=== PATIENT | female | born 1980 | race Caucasian/White ===

== ENCOUNTER 2018-01-25 17:51 | Inpatient (IN) | payer MEDICAID ==
[2018-01-25] MEDS: FAMOTIDINE 20 MG INJ IV (20:08)
[2018-01-25] MEDS: KETOROLAC 15 MG INJ IV (20:08)
[2018-01-25] MEDS: ONDANSETRON 4 MG INJ IV (20:08)
[2018-01-25] MEDS: morphine 2 MG INJ IV (20:08)
[2018-01-25] MEDS: SOD CHLORIDE 0.9% 1,000 ML IV ×2 (20:09→23:54)
[2018-01-25 20:23] LABS: ADD MAN DIFF? NO
[2018-01-25 20:24] LABS: WHITE BLOOD COUNT 14.4 10^3/ul (4.8-10.8)
[2018-01-25 20:24] LABS: ABNORMAL IP MESSAGE 1; BASOPHILS % 0.1 % (0.0-2.0); HEMOGLOBIN 12.1 g/dl (12.0-16.0); LYMPHOCYTES # 0.6 10^3/ul (0.8-2.9); LYMPHOCYTES % 4.1 % (15.0-51.0); MEAN CORPUSCULAR HEMOGLOBIN 32.7 pg (29.0-33.0); MEAN CORPUSCULAR HGB CONC 35.6 g/dl (32.0-37.0); MEAN CORPUSCULAR VOLUME 91.9 fl (82.0-101.0); MEAN PLATELET VOLUME 10.1 fl (7.4-10.4); MONOCYTE # 0.7 10^3/ul (0.3-0.9); MONOCYTES % 5.1 % (0.0-11.0); NEUTROPHILS % 90.1 % (39.0-77.0); PLATELET COUNT 183 10^3/UL (140-415); RED CELL DISTRIBUTION WIDTH 11.8 % (11.5-14.5)
[2018-01-25] MEDS: PIPER-TAZO 3.375 GM IV (PMX) 100 ML IVPB ×2 (20:24→23:53)
[2018-01-25 20:26] LABS: POSITIVE DIFF @See below
[2018-01-25 20:38] LABS: ADD UMIC YES; UR AMORPHOUS CRYSTAL FEW /HPF (NONE SEEN); UR ASCORBIC ACID NEGATIVE (NEGATIVE); UR BACTERIA MANY /HPF (NONE SEEN); UR BILIRUBIN (Dip) NEGATIVE (NEGATIVE); UR BLOOD (Dip) 2+ mg/dL (NEGATIVE); UR CLARITY CLOUDY (CLEAR); UR COLOR YELLOW (YELLOW); UR GLUCOSE (Dip) NEGATIVE (NEGATIVE); UR KETONES (Dip) NEGATIVE (NEGATIVE); UR LEUKOCYTE ESTERASE (Dip) 3+ Leu/ul (NEGATIVE); UR NITRITE (Dip) POSITIVE (NEGATIVE); UR RBC 12 /HPF (0-5); UR SPECIFIC GRAVITY (Dip) 1.008 (1.003-1.030); UR SQUAMOUS EPITHELIAL CELL FEW /HPF (FEW); UR TOTAL PROTEIN (Dip) 1+ mg/dl (NEGATIVE); UR TRANSITIONAL EPI CELL FEW /HPF (NONE SEEN); UR UROBILINOGEN (Dip) NEGATIVE (NEGATIVE); UR WBC > 182 /HPF (0-5)
[2018-01-25 20:42] LABS: ALANINE AMINOTRANSFERASE 19 IU/L (13-69); ALBUMIN 4.5 g/dl (3.3-4.9); ALBUMIN/GLOBULIN RATIO 1.32; ALKALINE PHOSPHATASE 66 IU/L (42-121); ANION GAP 19 (8-16); ASPARTATE AMINO TRANSFERASE 21 IU/L (15-46); BILIRUBIN,INDIRECT 0.9 mg/dl (0-1.1); BILIRUBIN,TOTAL 0.9 mg/dl (0.2-1.3); BLOOD UREA NITROGEN 9 mg/dl (7-20); CALCIUM 8.8 mg/dl (8.4-10.2); CARBON DIOXIDE 24 mmol/L (21-31); CHLORIDE 102 mmol/L (97-110); CREATININE 0.76 mg/dl (0.44-1.00); GLUCOSE 128 mg/dl (70-220); LIPASE 48 U/L (23-300); POTASSIUM 3.5 mmol/L (3.5-5.1); SODIUM 141 mmol/L (135-144); TOTAL PROTEIN 7.9 g/dl (6.1-8.1)
[2018-01-25] MEDS: IOHEXOL 300MG/ML 150 ML BTL (21:21)
[2018-01-25] MEDS: SOD CHLORIDE 0.9% 100 ML (21:21)
[2018-01-25] MEDS ORDERED: NACL 0.9% 3 ML SYG IV (23:30)
[2018-01-25] MEDS ORDERED: morphine 2 MG INJ IV (23:30)
[2018-01-25] MEDS ORDERED: ONDANSETRON 4 MG INJ IV (23:30)
[2018-01-25] MEDS ORDERED: VANCOMYCIN IV PER PHARMACY XX (23:30)
[2018-01-25] MEDS ORDERED: ALBUTEROL/IPRATROPIUM (NEB) 3 ML AMP HHN (23:30)
[2018-01-25] MEDS: ACETAMINOPHEN 325 MG TAB PO (23:54)
[2018-01-26] MEDS: HYDROmorphONE 0.5 MG/0.5 ML SYG IV (00:34)
[2018-01-26] MEDS: VANCOMYCIN 1 GM in 250 ML IVPB (01:47)
[2018-01-26] MEDS: SOD CHLORIDE 0.9% 1,000 ML IV ×3 (04:33→16:43)
[2018-01-26 05:13] LABS: WHITE BLOOD COUNT 11.8 10^3/ul (4.8-10.8)
[2018-01-26 05:13] LABS: HEMATOCRIT 27.6 % (37.0-47.0); HEMOGLOBIN 9.6 g/dl (12.0-16.0); MEAN CORPUSCULAR HEMOGLOBIN 32.3 pg (29.0-33.0); MEAN CORPUSCULAR HGB CONC 34.8 g/dl (32.0-37.0); MEAN CORPUSCULAR VOLUME 92.9 fl (82.0-101.0); MEAN PLATELET VOLUME 10.1 fl (7.4-10.4); PLATELET COUNT 137 10^3/UL (140-415); RED BLOOD COUNT 2.97 10^6/ul (4.20-5.40)
[2018-01-26 05:35] LABS: POSITIVE DIFF @See below
[2018-01-26 05:36] LABS: ADD MAN DIFF? YES
[2018-01-26 05:41] LABS: ALANINE AMINOTRANSFERASE 22 IU/L (13-69); ALBUMIN 3.2 g/dl (3.3-4.9); ALBUMIN/GLOBULIN RATIO 1.14; ALKALINE PHOSPHATASE 44 IU/L (42-121); ANION GAP 12 (8-16); ASPARTATE AMINO TRANSFERASE 13 IU/L (15-46); BILIRUBIN,INDIRECT 0.5 mg/dl (0-1.1); BILIRUBIN,TOTAL 0.5 mg/dl (0.2-1.3); BLOOD UREA NITROGEN 7 mg/dl (7-20); CARBON DIOXIDE 23 mmol/L (21-31); CHLORIDE 108 mmol/L (97-110); CREATININE 0.63 mg/dl (0.44-1.00); GLUCOSE 113 mg/dl (70-220); MAGNESIUM 1.8 mg/dl (1.7-2.5); PHOSPHORUS 3.1 mg/dl (2.5-4.9); POTASSIUM 3.2 mmol/L (3.5-5.1); SODIUM 140 mmol/L (135-144)
[2018-01-26] MEDS: PIPER-TAZO 3.375 GM IV (PMX) 100 ML IVPB ×4 (06:10→23:24)
[2018-01-26] MEDS: ACETAMINOPHEN 325 MG TAB PO ×3 (06:15→19:57)
[2018-01-26 07:15] LABS: BAND NEUTROPHILS #M 2.5 10^3/ul (0.0-0.6); BAND NEUTROPHILS % (M) 22 % (0-4); LYMPHOCYTES #M 0.5 10^3/ul (0.8-2.9); LYMPHOCYTES % (M) 5 % (15-51); MONOCYTE #M 0.1 10^3/ul (0.3-0.9); MONOCYTES % (M) 1 % (0-11); PLATELET ESTIMATE NORMAL; SEG NEUT #M 8.8 10^3/ul (1.6-7.5); SEGMENTED NEUTROPHILS (M) % 72 % (39-77); SMUDGE%M 1 % (0-0)
[2018-01-26] MEDS: HEPARIN 5,000 UNIT/0.5 ML VIAL SC (08:53)
[2018-01-26] MEDS: VANCOMYCIN 750 MG in DEXTROSE 5% 150 ML IVPB (08:54)
[2018-01-26] MEDS ORDERED: VANCOMYCIN 750 MG in DEXTROSE 5% 150 ML IVPB ×2 (10:00→17:00)
[2018-01-26] MEDS: POTASSIUM CHLORIDE 100 ML IVPB (17:41)
[2018-01-26] MEDS: SOD CHLORIDE 0.9% 500 ML IV (17:41)
[2018-01-27] MEDS: SOD CHLORIDE 0.9% 1,000 ML IV ×3 (02:13→23:28)
[2018-01-27] MEDS: PIPER-TAZO 3.375 GM IV (PMX) 100 ML IVPB ×4 (05:23→23:54)
[2018-01-27 05:48] LABS: HEMATOCRIT 25.1 % (37.0-47.0); HEMOGLOBIN 8.9 g/dl (12.0-16.0); MEAN CORPUSCULAR HEMOGLOBIN 32.7 pg (29.0-33.0); MEAN CORPUSCULAR HGB CONC 35.5 g/dl (32.0-37.0); MEAN CORPUSCULAR VOLUME 92.3 fl (82.0-101.0); MEAN PLATELET VOLUME 10.8 fl (7.4-10.4); PLATELET COUNT 125 10^3/UL (140-415); RED BLOOD COUNT 2.72 10^6/ul (4.20-5.40); RED CELL DISTRIBUTION WIDTH 12.1 % (11.5-14.5)
[2018-01-27 06:01] LABS: HEMOGLOBIN A1C 5.1 % (0-5.9)
[2018-01-27 06:07] LABS: POSITIVE DIFF @See below
[2018-01-27 06:08] LABS: ADD MAN DIFF? YES
[2018-01-27 06:11] LABS: ALANINE AMINOTRANSFERASE 23 IU/L (13-69); ALBUMIN/GLOBULIN RATIO 1.11; ALKALINE PHOSPHATASE 52 IU/L (42-121); ANION GAP 11 (8-16); ASPARTATE AMINO TRANSFERASE 18 IU/L (15-46); BILIRUBIN,INDIRECT 0.2 mg/dl (0-1.1); BILIRUBIN,TOTAL 0.2 mg/dl (0.2-1.3); BLOOD UREA NITROGEN 3 mg/dl (7-20); CALCIUM 7.3 mg/dl (8.4-10.2); CARBON DIOXIDE 21 mmol/L (21-31); CHLORIDE 111 mmol/L (97-110); GLUCOSE 147 mg/dl (70-220); POTASSIUM 3.2 mmol/L (3.5-5.1); SODIUM 140 mmol/L (135-144); TOTAL PROTEIN 5.7 g/dl (6.1-8.1)
[2018-01-27 06:13] LABS: INR 1.34; PROTIME 16.8 Sec (11.9-14.9); PT RATIO 1.3
[2018-01-27 06:52] LABS: HIV 1&2 ANTIBODY NEGATIVE (NEGATIVE)
[2018-01-27 07:24] LABS: ANISOCYTOSIS 2+ (0-0); BAND NEUTROPHILS #M 2.6 10^3/ul (0.0-0.6); BAND NEUTROPHILS % (M) 26 % (0-4); BURR CELLS 1+ (0-0); EOSINOPHILS % (M) 1 % (0-7); LYMPHOCYTES % (M) 10 % (15-51); MICROCYTOSIS 2+ (0-0); PLATELET ESTIMATE DECREASED; POLYCHROMASIA 1+ (0-0); SEG NEUT #M 6.6 10^3/ul (1.6-7.5); SEGMENTED NEUTROPHILS (M) % 63 % (39-77); SMUDGE%M 1 % (0-0)
[2018-01-27] MEDS: ACETAMINOPHEN 325 MG TAB PO (08:21)
[2018-01-27 21:28] LABS: RAPID PLASMA REAGIN NONREACTIVE (NR)
[2018-01-28] MEDS: PIPER-TAZO 3.375 GM IV (PMX) 100 ML IVPB (05:41)
[2018-01-28 05:51] LABS: ADD MAN DIFF? NO
[2018-01-28 05:53] LABS: WHITE BLOOD COUNT 6.9 10^3/ul (4.8-10.8)
[2018-01-28 05:53] LABS: BASOPHILS % 0.1 % (0.0-2.0); EOSINOPHILS # 0.1 10^3/ul (0.0-0.5); EOSINOPHILS % 0.7 % (0.0-7.0); HEMATOCRIT 24.4 % (37.0-47.0); HEMOGLOBIN 8.7 g/dl (12.0-16.0); MEAN CORPUSCULAR HEMOGLOBIN 32.5 pg (29.0-33.0); MEAN CORPUSCULAR HGB CONC 35.7 g/dl (32.0-37.0); MEAN PLATELET VOLUME 10.6 fl (7.4-10.4); MONOCYTE # 0.4 10^3/ul (0.3-0.9); MONOCYTES % 6.3 % (0.0-11.0); NEUTROPHIL # 5.4 10^3/ul (1.6-7.5); NEUTROPHILS % 78.6 % (39.0-77.0); PLATELET COUNT 152 10^3/UL (140-415); RED BLOOD COUNT 2.68 10^6/ul (4.20-5.40); RED CELL DISTRIBUTION WIDTH 12.1 % (11.5-14.5)
[2018-01-28 06:25] LABS: ALANINE AMINOTRANSFERASE 21 IU/L (13-69); ALBUMIN/GLOBULIN RATIO 1.03; ALKALINE PHOSPHATASE 64 IU/L (42-121); ANION GAP 12 (8-16); ASPARTATE AMINO TRANSFERASE 19 IU/L (15-46); BILIRUBIN,INDIRECT 0.3 mg/dl (0-1.1); BILIRUBIN,TOTAL 0.3 mg/dl (0.2-1.3); BLOOD UREA NITROGEN 2 mg/dl (7-20); CALCIUM 7.8 mg/dl (8.4-10.2); CARBON DIOXIDE 23 mmol/L (21-31); CHLORIDE 111 mmol/L (97-110); CREATININE 0.57 mg/dl (0.44-1.00); GLUCOSE 102 mg/dl (70-220); POTASSIUM 3.1 mmol/L (3.5-5.1); SODIUM 143 mmol/L (135-144); TOTAL PROTEIN 5.9 g/dl (6.1-8.1)
[2018-01-28] MEDS: CIPROFLOXACIN 500 MG TAB PO ×2 (08:53→17:46)
[2018-01-28] MEDS: ENOXAPARIN 40 MG/0.4 ML SYG SC (08:56)
[2018-01-28] MEDS: SOD CHLORIDE 0.9% 1,000 ML IV (13:16)
[2018-01-28] MEDS: ACETAMINOPHEN 325 MG TAB PO (13:21)
== END 2018-01-28 18:30 | disposition home or self-care (01) | DRG 871 ==
LOC: MS1 01-27 04:14 → FTE 17:51 → MS1 22:52
DX: A41.9 Sepsis, unspecified organism (principal); N15.1 Renal and perinephric abscess; N12 Tubulo-interstitial nephritis, not specified as acute or chronic; R65.20 Severe sepsis without septic shock
CPT/HCPCS: 36415; 74177; 76775; 80053; 81001; 83036; 83690; 83735; 84100; 84443; 84703; 85025; 85610; 86592; 86703; 87086; 87591; 96374; 96375; 99285-25

== ENCOUNTER 2019-02-14 18:37 | Emergency (ER) | payer MEDICAID | END 2019-02-14 20:12 | disposition home or self-care (01) | LOC: E/R 18:37 | DX: J02.9 Acute pharyngitis, unspecified (principal) | CPT/HCPCS: 99283; Z7502 ==

== ENCOUNTER 2019-03-26 20:53 | Inpatient (IN) | payer MEDICAID ==
[2019-03-26] MEDS: SODIUM CHLORIDE 0.9% 1L BAG IV* (21:15)
[2019-03-26 21:19] LABS: ADD MAN DIFF? NO
[2019-03-26] MEDS: ONDANSETRON 4 MG INJ IV (21:20)
[2019-03-26] MEDS: LEVOFLOXACIN 750MG/D5W (PMX) 150 ML IVPB (21:20)
[2019-03-26] MEDS: morphine 4 MG/ML VIAL IV (21:20)
[2019-03-26 21:24] LABS: BASOPHILS % 0.1 % (0.0-2.0); EOSINOPHILS % 0.3 % (0.0-7.0); HEMATOCRIT 35.8 % (37.0-47.0); HEMOGLOBIN 12.1 g/dl (12.0-16.0); LYMPHOCYTES # 0.6 10^3/ul (0.8-2.9); LYMPHOCYTES % 8.7 % (15.0-51.0); MEAN CORPUSCULAR HEMOGLOBIN 32.4 pg (29.0-33.0); MEAN CORPUSCULAR HGB CONC 33.8 g/dl (32.0-37.0); MEAN PLATELET VOLUME 9.8 fl (7.4-10.4); MONOCYTE # 0.3 10^3/ul (0.3-0.9); MONOCYTES % 4.3 % (0.0-11.0); NEUTROPHIL # 6.3 10^3/ul (1.6-7.5); NEUTROPHILS % 86.5 % (39.0-77.0); PLATELET COUNT 236 10^3/UL (140-415); RED BLOOD COUNT 3.73 10^6/ul (4.20-5.40); RED CELL DISTRIBUTION WIDTH 12.5 % (11.5-14.5)
[2019-03-26 21:24] LABS: WHITE BLOOD COUNT 7.2 10^3/ul (4.8-10.8)
[2019-03-26 21:46] LABS: INR 0.91; PARTIAL THROMBOPLASTIN TIME 30.4 Sec (23.0-35.0); PROTIME 12.4 Sec (11.9-14.9)
[2019-03-26 21:48] LABS: ALANINE AMINOTRANSFERASE 29 IU/L (13-69); ALBUMIN 4.5 g/dl (3.3-4.9); ALKALINE PHOSPHATASE 60 IU/L (42-121); ANION GAP 9 (5-13); ASPARTATE AMINO TRANSFERASE 23 IU/L (15-46); BILIRUBIN,INDIRECT 0.7 mg/dl (0-1.1); BILIRUBIN,TOTAL 0.7 mg/dl (0.2-1.3); BLOOD UREA NITROGEN 10 mg/dl (7-20); CALCIUM 8.9 mg/dl (8.4-10.2); CARBON DIOXIDE 27 mmol/L (21-31); CHLORIDE 102 mmol/L (97-110); CREATININE 0.71 mg/dl (0.44-1.00); Estimated GFR > 60 mL/min (>60); GLUCOSE 112 mg/dl (70-220); POTASSIUM 3.7 mmol/L (3.5-5.1); SODIUM 138 mmol/L (135-144); TOTAL PROTEIN 7.7 g/dl (6.1-8.1)
[2019-03-26 21:52] LABS: ADD UMIC YES; UR ASCORBIC ACID NEGATIVE (NEGATIVE); UR BACTERIA FEW /HPF (NONE SEEN); UR BILIRUBIN (Dip) NEGATIVE (NEGATIVE); UR BLOOD (Dip) NEGATIVE (NEGATIVE); UR CLARITY SLIGHTLY CLOUDY (CLEAR); UR COLOR YELLOW (YELLOW); UR GLUCOSE (Dip) NEGATIVE (NEGATIVE); UR KETONES (Dip) NEGATIVE (NEGATIVE); UR LEUKOCYTE ESTERASE (Dip) 2+ Leu/ul (NEGATIVE); UR NITRITE (Dip) POSITIVE (NEGATIVE); UR RBC 5 /HPF (0-5); UR SPECIFIC GRAVITY (Dip) 1.021 (1.003-1.030); UR SQUAMOUS EPITHELIAL CELL MODERATE /HPF (FEW); UR TOTAL PROTEIN (Dip) 1+ mg/dl (NEGATIVE); UR UROBILINOGEN (Dip) 1+ mg/dL (NEGATIVE); UR WBC 73 /HPF (0-5)
[2019-03-26 22:00] LABS: TROPONIN-I < 0.012 ng/ml (0.000-0.120)
[2019-03-26] MEDS: VANCOMYCIN 1 GM (PMX) 250 ML IVPB (23:08)
[2019-03-26] MEDS: ACETAMINOPHEN 500 MG TAB PO (23:08)
[2019-03-26] MEDS ORDERED: ACETAMINOPHEN 325 MG TAB PO (23:30)
[2019-03-26] MEDS ORDERED: ONDANSETRON 4 MG INJ IV (23:30)
[2019-03-27] MEDS ORDERED: NACL 0.9% 3 ML SYG IV
[2019-03-27] MEDS ORDERED: ALBUTEROL/IPRATROPIUM (NEB) 3 ML AMP HHN
[2019-03-27] MEDS ORDERED: morphine 2 MG INJ IV
[2019-03-27] MEDS ORDERED: MAGNESIUM HYDROXIDE 30ML CUP PO
[2019-03-27] MEDS ORDERED: LORAZEPAM 2 MG INJ IV
[2019-03-27] MEDS ORDERED: HYDROCODONE/APAP (5/325) TAB PO
[2019-03-27] MEDS ORDERED: hydrALAzine 20 MG INJ IV
[2019-03-27] MEDS ORDERED: NITROGLYCERIN (SL) 0.4 MG TAB SL
[2019-03-27 00:06] LABS: FREE T4 (FREE THYROXINE) 0.81 ng/dl (0.79-2.35)
[2019-03-27] MEDS ORDERED: DIPHENHYDRAMINE 50 MG INJ IV (00:30)
[2019-03-27] MEDS: MEROPENEM 1 GM/50ML(PMX) 50 ML IVPB ×4 (01:20→21:08)
[2019-03-27] MEDS: SOD CHLORIDE 0.9% 1,000 ML IV ×3 (01:21→12:07)
[2019-03-27 03:56] LABS: ADD MAN DIFF? NO
[2019-03-27 04:07] LABS: WHITE BLOOD COUNT 7.2 10^3/ul (4.8-10.8)
[2019-03-27 04:07] LABS: ABNORMAL IP MESSAGE 1; BASOPHILS % 0.3 % (0.0-2.0); HEMATOCRIT 30.5 % (37.0-47.0); HEMOGLOBIN 10.4 g/dl (12.0-16.0); LYMPHOCYTES # 0.5 10^3/ul (0.8-2.9); LYMPHOCYTES % 6.2 % (15.0-51.0); MEAN CORPUSCULAR HEMOGLOBIN 32.7 pg (29.0-33.0); MEAN CORPUSCULAR HGB CONC 34.1 g/dl (32.0-37.0); MEAN CORPUSCULAR VOLUME 95.9 fl (82.0-101.0); MONOCYTE # 0.5 10^3/ul (0.3-0.9); MONOCYTES % 7.5 % (0.0-11.0); NEUTROPHIL # 6.2 10^3/ul (1.6-7.5); NEUTROPHILS % 85.4 % (39.0-77.0); PLATELET COUNT 179 10^3/UL (140-415); RED BLOOD COUNT 3.18 10^6/ul (4.20-5.40); RED CELL DISTRIBUTION WIDTH 12.6 % (11.5-14.5)
[2019-03-27 04:16] LABS: CHOLESTEROL 145 mg/dl (100-200)
[2019-03-27 04:16] LABS: CHOL/HDL RATIO 3.2 RATIO; HDL CHOLESTEROL 45 mg/dl (34-82); LDL CHOLESTEROL,CALCULATED 81 mg/dl; TRIGLYCERIDES 97 mg/dl (0-149)
[2019-03-27 04:17] LABS: ANION GAP 5 (5-13); BLOOD UREA NITROGEN 8 mg/dl (7-20); CALCIUM 7.7 mg/dl (8.4-10.2); CARBON DIOXIDE 24 mmol/L (21-31); CHLORIDE 109 mmol/L (97-110); Estimated GFR > 60 mL/min (>60); GLUCOSE 129 mg/dl (70-220); MAGNESIUM 1.8 mg/dl (1.7-2.5); PHOSPHORUS 3.3 mg/dl (2.5-4.9); POTASSIUM 3.9 mmol/L (3.5-5.1); SODIUM 138 mmol/L (135-144)
[2019-03-27 04:18] LABS: LACTIC ACID 0.7 mmol/L (0.5-2.0)
[2019-03-27 04:22] LABS: POSITIVE DIFF @See below
[2019-03-27 04:48] LABS: THYROID STIMULATING HORMONE 0.555 MIU/L (0.465-4.680)
[2019-03-27] MEDS: HEPARIN 5,000 UNIT/1 ML VIAL SC (08:33)
[2019-03-27] MEDS: DOCUSATE SODIUM 100 MG CAP PO (08:34)
[2019-03-27] MEDS: ONDANSETRON 4 MG INJ IV (08:34)
[2019-03-27 08:48] LABS: LACTIC ACID 0.7 mmol/L (0.5-2.0)
[2019-03-27 12:18] LABS: LACTIC ACID 0.6 mmol/L (0.5-2.0)
[2019-03-27] MEDS ORDERED: MEROPENEM 1 GM/50ML(PMX) 50 ML IVPB (14:30)
[2019-03-27 15:36] LABS: LACTIC ACID 0.8 mmol/L (0.5-2.0)
[2019-03-27] MEDS: ACETAMINOPHEN 325 MG TAB PO (19:00)
[2019-03-28] MEDS: SOD CHLORIDE 0.9% 1,000 ML IV (02:49)
[2019-03-28] MEDS: MEROPENEM 1 GM/50ML(PMX) 50 ML IVPB ×2 (05:52→13:26)
[2019-03-28 06:00] LABS: ADD MAN DIFF? NO
[2019-03-28 06:07] LABS: BASOPHILS % 0.2 % (0.0-2.0); EOSINOPHILS % 0.2 % (0.0-7.0); HEMATOCRIT 31.3 % (37.0-47.0); HEMOGLOBIN 10.8 g/dl (12.0-16.0); LYMPHOCYTES # 0.8 10^3/ul (0.8-2.9); LYMPHOCYTES % 13.8 % (15.0-51.0); MEAN CORPUSCULAR HEMOGLOBIN 32.7 pg (29.0-33.0); MEAN CORPUSCULAR HGB CONC 34.5 g/dl (32.0-37.0); MEAN CORPUSCULAR VOLUME 94.8 fl (82.0-101.0); MONOCYTE # 0.4 10^3/ul (0.3-0.9); MONOCYTES % 7.4 % (0.0-11.0); NEUTROPHIL # 4.6 10^3/ul (1.6-7.5); NEUTROPHILS % 78.2 % (39.0-77.0); PLATELET COUNT 184 10^3/UL (140-415); RED CELL DISTRIBUTION WIDTH 12.4 % (11.5-14.5)
[2019-03-28 06:07] LABS: WHITE BLOOD COUNT 5.9 10^3/ul (4.8-10.8)
[2019-03-28 06:39] LABS: ANION GAP 6 (5-13); BLOOD UREA NITROGEN 3 mg/dl (7-20); CALCIUM 8.1 mg/dl (8.4-10.2); CARBON DIOXIDE 24 mmol/L (21-31); CHLORIDE 108 mmol/L (97-110); CREATININE 0.52 mg/dl (0.44-1.00); Estimated GFR > 60 mL/min (>60); GLUCOSE 110 mg/dl (70-220); POTASSIUM 3.6 mmol/L (3.5-5.1); SODIUM 138 mmol/L (135-144)
== END 2019-03-28 15:21 | disposition home or self-care (01) | DRG 872 ==
LOC: PP2 23:17 → E/R 20:53
DX: A41.51 Sepsis due to Escherichia coli [E. coli] (principal); N12 Tubulo-interstitial nephritis, not specified as acute or chronic
CPT/HCPCS: 36415; 71045; 74176; 80048; 80053; 80061; 81001; 81025; 83036; 83605; 83735; 84100; 84439; 84443; 84484; 85025; 85610; 85730; 87040-91; 87086; 93005; 96374; 96375; 99285-25